=== PATIENT | male | born 1955 | race Caucasian/White ===

== ENCOUNTER 2020-07-07 18:40 | Emergency (ER) | payer OTHER ==
[~2020-07-07 18:40] MED LIST: ASPIRIN CHEWABL81 MG PO; ASPIRIN EC81 MG PO; CRESTOR10 MG PO; GLUCOTROL5 MG PO; LISINOPRIL-HCT1 EAC1 PO; METFORMIN HCL500 MG PO; MOBIC7.5 MG PO; NORCO 5-325 TA1 EACH PO; PERCOCET 5-3251 EACH PO; WELLBUTRIN XL150 MG PO
[2020-07-07 20:46] LABS: BASOPHIL 0.8 % (0-2); EOSINOPHIL 1.7 % (0-7); HCT 37.6 % (42.0-52.0); MCH 31.6 pg (25.0-31.0); MCHC 34.6 g/dL (32.0-36.0); MCV 91.3 fL (78.0-100.0); MONOCYTE 11.6 % (0-12); MPV 9.9 fL (6.0-9.5); NEUTROPHIL 65.3 % (41-80); NRBC 0; PLT 336 K/uL (150-400); RBC 4.12 M/uL (4.70-6.00); RDW 11.9 % (11.5-14.0); WBC 8.3 K/uL (4.0-10.5)
[2020-07-07 21:01] LABS: BUN/CREAT RATIO (CALC) 32.5 RATIO; CREATININE 0.77 mg/dL (0.67-1.17); POTASSIUM 4.4 mmol/L (3.5-5.1)
[2020-07-07] MEDS ORDERED: CEPHALEXIN500 MG PO (21:28)
== END 2020-07-07 21:58 | disposition home or self-care (01) ==
LOC: FER 18:40
PROVIDERS: Nurse Practitioner Family
DX: T23.012A Burn of unspecified degree of left thumb (nail), initial encounter (principal); L08.9 Local infection of the skin and subcutaneous tissue, unspecified; I10 Essential (primary) hypertension; E11.9 Type 2 diabetes mellitus without complications; X10.2XXA Contact with fats and cooking oils, initial encounter; Y92.009 Unspecified place in unspecified non-institutional (private) residence as the place of occurrence of the external cause
CPT/HCPCS: 36415; 80048; 85025; 99283; J0696